=== PATIENT | male | born 1970 | race Caucasian/White ===

== ENCOUNTER 2018-03-16 20:59 | Emergency (ER) | payer BC ==
[2018-03-16 21:11] VITALS: RESP 18
--- NOTE | 2018-03-16 22:56 | ED ---
General Adult HPI - General Chief complaint: Extremity Injury, Lower Stated complaint: vericose vein problems Time Seen by Provider: 03/16/18 21:45 Source: patient, RN notes reviewed, old records reviewed Mode of arrival: ambulatory Limitations: no limitations - History of Present Illness Initial comments: This patient's a 48-year-old male presents the emergency department with a chief complaint of swelling and pain in his left lower leg. He has multiple varicose veins. He states that it seemed to be red and swollen. He states that seemed to subside. It is over the lateral aspect of his lower leg. Patient states that he's had no shortness breath chest pain. - Related Data Home Medications Medication Instructions Recorded Confirmed Atorvastatin [Lipitor] 40 mg PO DAILY 03/16/18 03/16/18 Baclofen [Lioresal] 10 mg PO TID PRN 03/16/18 03/16/18 Hydrocodone/Acetaminophen [[place] 1 tab PO BID PRN 03/16/18 03/16/18 7.5-325] Lidocaine 5% Patch [Lidoderm] 1 patch TOPICAL DAILY 03/16/18 03/16/18 Multivitamins, Thera [Multivitamin 1 tab PO DAILY 03/16/18 03/16/18 (formulary)] traMADol HCL [Ultram] 50 mg PO BID PRN 03/16/18 03/16/18 Allergies Allergy/AdvReac Type Severity Reaction Status Date / Time Penicillins Allergy Dyspnea Verified 03/16/18 21:26 Review of Systems ROS Statement: Those systems with pertinent positive or pertinent negative responses have been documented in the HPI. ROS Other: All systems not noted in ROS Statement are negative. Past Medical History Past Medical History: Diabetes Mellitus, Hyperlipidemia History of Any Multi-Drug Resistant Organisms: None Reported Past Surgical History: Bariatric Surgery, Cholecystectomy Past Psychological History: No Psychological Hx Reported Smoking Status: Current every day smoker Past Alcohol Use History: None Reported Past Drug Use History: None Reported General Exam - General Exam Comments Initial Comments: This is a 48-year-old male. Alert and oriented. No significant distress. General: Well appearing, well nourished, in no distress. Oriented x 3, normal mood and affect . Ambulating without difficulty. Skin: Good turgor, no rash, unusual bruising or prominent lesions Hair: Normal texture and distribution. HEENT: Head: Normocephalic, atraumatic, no visible or palpable masses, depressions, or scaring. Eyes: Visual acuity intact, conjunctiva clear, sclera non-icteric, EOM intact, PERRL. Ears: EACs clear, TMs translucent & cone of light visualized. hearing intact. Nose: No external lesions, mucosa non-inflamed, septum and turbinates normal Mouth: Mucous membranes moist, no mucosal lesions. Teeth/Gums: No obvious caries or periodontal disease. No gingival inflammation or significant resorption. Pharynx: Mucosa non-inflamed, no tonsillar hypertrophy or exudate Neck: Supple, without lesions, bruits, or adenopathy, thyroid non-enlarged and non-tender Heart: No cardiomegaly or thrills; regular rate and rhythm, no murmur or gallop Lungs: Clear to auscultation and percussion Abdomen: Bowel sounds normal, no tenderness, organomegaly, masses, or hernia Extremities: No amputations or deformities, lesions multiple varicose veins. No redness or significant Tenderness. Musculoskeletal: Normal gait and station. No misalignment, asymmetry, crepitation, defects, tenderness, masses, effusions, decreased range of motion, instability, atrophy or abnormal strength or tone in the head, neck, spine, ribs , pelvis or extremities. Neurologic: CN 2-12 normal. Sensation to pain, touch, and proprioception normal. DTRs normal in upper and lower extremities. No pathologic reflexes. Limitations: no limitations Course Vital Signs 03/16/18 21:07 Temperature 98.1 F Pulse Rate 73 Respiratory 18 Rate Blood Pressure 137/83 O2 Sat by Pulse 98 Oximetry Medical Decision Making - Medical Decision Making 48-year-old male with left leg swelling irritation over his varicosity on the lateral aspect of the left lower leg. Patient reports his been going on for 2 days. On exam around he reports that the swelling that was there origninally is gone. The leg is not red and warm. He has no posterior calf pain. He does have multiple varicosities. Patient reports this occurred after he had a bariatric surgery and lost weight. At this time patient's ultrasound is negative for DVT. Patient will be advised to use compression stocking for multiple varicosities. Follow-up with a pain specialist. Patient is history plan will apply. Return parameters were discussed. - Radiology Data Radiology results: report reviewed Ultrasound was negative for DVT. Disposition Clinical Impression: Varicose vein of leg Disposition: HOME SELF-CARE Condition: Good Instructions: Varicose Veins (ED) Additional Instructions: Patient should purchase and use compression stockings to help with varicose veins. If this does recur superficially apply warm compresses over the area and take anti-inflammatory medicine such as Motrin. Patient can follow-up with primary care physician or pain specialist. Return to the emergency department if any alarming signs or symptoms occur. Is patient prescribed a controlled substance at d/c from ED?: No When asked, does pt state using other controlled substances?: No If prescribed controlled substance>3 days was MAPS reviewed?: No If opioid is for acute pain is fill amount 7 days or less?: No If Rx opioid, was Start Talking consent form obtained?: No Referrals: Nonstaff,Physician [Primary Care Provider] - 1-2 days Mal Billings MD [STAFF PHYSICIAN] - 1-2 days Time of Disposition: 23:05
--- NOTE | 2018-03-16 23:01 | US ---
EXAMINATION TYPE: US venous doppler duplex LE LT DATE OF EXAM: 03/16/2018 10:46 PM COMPARISON: NONE CLINICAL HISTORY: Pain. Left leg pain and lump. SIDE PERFORMED: Left TECHNIQUE: The lower extremity deep venous system is examined utilizing real time linear array sonog melissa with graded compression, doppler sonography and color-flow sonography. VESSELS IMAGED: External Iliac Vein (EIV) Common Femoral Vein Deep Femoral Vein Greater Saphenous Vein * Femoral Vein Popliteal Vein Small Saphenous Vein * Proximal Calf Veins (* superficial vessels) Left Leg: Negative for DVT No evidence of DVT left leg. IMPRESSION: Negative exam. No evidence of deep venous thrombosis.
[2018-03-16 23:56] VITALS: BP 149/81; PULSE 72; TEMP 98
== END 2018-03-16 23:10 | disposition home or self-care (01) ==
LOC: EC 20:59
DX: I83.92 Asymptomatic varicose veins of left lower extremity (principal); E78.5 Hyperlipidemia, unspecified; F17.200 Nicotine dependence, unspecified, uncomplicated; Z90.49 Acquired absence of other specified parts of digestive tract; Z98.84 Bariatric surgery status; Z88.0 Allergy status to penicillin; Z79.899 Other long term (current) drug therapy
CPT/HCPCS: 99284